=== PATIENT | female | born 1990 | race Caucasian/White ===

== ENCOUNTER 2021-12-25 13:32 | Emergency (ER) | payer MEDICARE, MEDICAID, SELFPAY ==
[2021-12-25 13:41] VITALS: BP 117/77; PULSE 83; RESP 18; TEMP 36.2; O2SAT 99; BMI 26.6
--- NOTE | 2021-12-25 14:04 | CRLHL7_ITS ---
For Patients: As a result of the Cures Act, medical imaging exams and procedure reports are released immediately into your electronic medical record. You may view this report before your referring provider. If you have questions, please contact your health care provider. Indication: Injury, pain Technique: Two views left tibia and fibula Comparison: 06/05/2018 Findings: Intact knee arthroplasty hardware. No acute fracture. Impression: No sign of acute injury. Dictated by Osbaldo Cline MD @ 12/25/2021 2:45:01 PM (Electronically Signed)
--- NOTE | 2021-12-25 14:55 | ED.GENADULT ---
HPI - General Adult General Chief complaint: Extremity Pain/Injury, Lower Stated complaint: Leg Injury Time Seen by Provider: 12/25/21 13:39 History of Present Illness HPI narrative: Angel is a 31-year-old female patient who presents emergency department via POV with complaints of left lower extremity pain. The patient reports that approximately 4 days prior she rolled out of bed and struck a pack and play that was sitting next to the bed with her left lower extremity. At the time, the patient reports significant pain associated with injury. She denies previous evaluation or treatment. She reports over the last few days she has attempted RICE and has used OTC pain medications without significant improvement in discomfort. She presents today at the urging of neighbors who recommended she be evaluated. She states that she is unable to ambulate on the lower extremity, but was noted by nursing staff to have walked into the facility and she reports that she drove herself here. She reports chronic bilateral lower extremity numbness and paresthesias secondary to history of brain cancer. She has known history of poor coordination secondary to this. In addition she has tardive dyskinesia, per her report secondary to her brain history. She denies other acute concerns or complaints as noted in ROS. Related Data Allergies Allergy/AdvReac Type Severity Reaction Status Date / Time levetiracetam [From Keppra] Allergy Verified 12/25/21 13:40 phenytoin [From Dilantin] Allergy Verified 12/25/21 13:40 Review of Systems Const: Denies: fever, chills, fatigue or malaise Eyes: Denies: change in vision or blurry vision ENMT: Denies: neck pain Cardio: Denies: chest pain, palpitations, swelling of feet/ankles, lightheadedness, shortness of breath with exertion, shortness of breath when lying down or leg pain with exertion Resp: Denies: shortness of breath or cough GI: Denies: abdominal pain, nausea, vomiting, diarrhea or constipation Musculo: Reports: extremity pain and muscle weakness (Chronic per patient); Denies: neck pain, joint pain or limited range of motion Integ/Breast: Reports: skin tenderness; Denies: rash or redness Neuro: Reports: numbness in extremities (Chronic per patient), weakness in extremities (Chronic per patient) and lack of coordination (Chronic per patient); Denies: headache, confusion or difficulty communicating thoughts Psych: Denies: anxiety or mood swings Endo: Denies: fatigue PFSH PFSH Social History Smoking Status: Current every day smoker Do you use any of these nicotine containing products: Vaping Products Second hand tobacco smoke exposure: No How often do you have a drink containing alcohol: monthly or less How many standard drinks containing alcohol do you have on a typical day: 1 or 2 How often do you have six or more drinks on one occasion: Never AUDIT-C Alcohol total score: 1 Non-prescribed substance use: denies use service: No Exam Const: Vital Signs, click to edit/add: Vital Signs - 24 hr 12/25/21 13:41 Temperature 97.1 F L Pulse Rate [Pulse Oximeter] 83 Respiratory Rate 18 Blood Pressure [Le ft Upper Arm] 117/77 Pulse Oximetry 99 Oxygen Delivery Me thod Room Air Documenting provider has reviewed patient's vital signs: yes Common normals: no apparent distress, average body habitus, oriented x3, no limitations, healthy appearing, alert and well nourished General appearance: cooperative, comfortable, well kempt and well developed; not in distress Orientation/consciousness: Yes awake, Yes oriented to person, Yes oriented to place and Yes oriented to time HENMT: Common normals: normocephalic and head/scalp atraumatic Head and scalp: normocephalic and atraumatic Eye: Common normals: PERRL Pupil: PERRL Neck & C-Spine: Common normals: full ROM, no lymphadenopathy and supple Resp: Common normals: normal respiratory effort, no use of accessory muscles and clear to auscultation bilaterally Effort & inspection: able to speak in complete sentences Auscultation: clear to auscultation bilaterally Cardio: Common normals: regular rate, regular rhythm, S1 normal heart sound and S2 normal heart sound Rate: regular rate Rhythm: regular rhythm Heart sounds: S1 normal and S2 normal Extremity: Common normals: normal to inspection, full ROM, no clubbing, cyanosis or edema and no calf tenderness Left lower extremity: lower leg Left lower leg: inspection (Normal, without erythema or ecchymosis or swelling noted), palpation (Negative pain to palpation; patient reports pain when she palpates.) and neurovascular exam (Abnormal secondary to chronic peripheral neuropathy per patient.) Neuro: Common normals: oriented x3, CN's II-XII intact bilaterally, moves all extremities (except as noted above), no focal motor deficits (except as noted above) and no sensory deficits noted (except as noted above) Sensorium/orientation: awake, alert, oriented to person, oriented to place and oriented to time Gait (neuro): normal gait (Unassisted) Motor exam: no movement abnormalities noted Psych: Common normals: mental status grossly normal, thought process normal, speech normal and activity/motor behavior normal Appearance: grossly normal and well kempt Attitude: calm Activity/motor behavior: appropriate eye contact Speech: normal speech Thought process: normal thought process Thought content: normal thought content Attention/concentration: attention grossly intact Memory/cognition: memory grossly intact Insight: insight good Judgement: judgment good Skin: Common normals: no rashes or lesions noted General skin exam: no rashes or lesions noted Course Course Hospital Course: Angel presented to the emergency department for complaints of left lower extremity pain after striking her leg on a pack and play. After a normal clinical exam, she was advised to consider conservative management. However, she requested imaging for further evaluation of potential fracture or dislocation. X-ray was performed. The negative images were discussed with the patient. She was reassured conservative management should assist with improving the contusion from striking her leg on the pack and play. She was encouraged she has [id number] medications as needed for pain and discomfort. She was advised to follow-up with her primary care as needed for continued pain or discomfort. Vital Signs Vital signs: Initial Vital Signs Temperature 97.1 F L 12/25/21 13:41 Temperature Source Temporal Artery Scan 12/25/21 13:41 Pulse Rate 83 12/25/21 13:41 Pulse Rhythm 12/25/21 13:41 Respiratory Rate 18 12/25/21 13:41 Blood Pressure 117/77 12/25/21 13:41 Blood Pressure Mean 90 12/25/21 13:41 Blood Pressure Position Sitting 12/25/21 13:41 Pulse Oximetry 99 12/25/21 13:41 Oxygen Delivery Method 12/25/21 13:41 Vital Signs Temperature 97.1 F L 12/25/21 13:41 Pulse Rate 83 12/25/21 13:41 Respiratory Rate 18 12/25/21 13:41 Blood Pressure 117/77 12/25/21 13:41 Pulse Oximetry 99 12/25/21 13:41 Oxygen Delivery Method 12/25/21 13:41 Temperature 97.1 F L 12/25/21 13:41 Pulse Rate 83 12/25/21 13:41 Respiratory Rate 18 12/25/21 13:41 Blood Pressure 117/77 12/25/21 13:41 Pulse Oximetry 99 12/25/21 13:41 Oxygen Delivery Method 12/25/21 13:41 Discharge Plan Discharge Clinical Impression: Contusion of left lower leg, initial encounter Patient Disposition: Home, Self-Care Condition: Stable Instructions: Contusion in Adults (ED) Additional Instructions: Thank you for choosing [facility] for your care today. Take NSAIDs (Ibuprofen, Motrin, Advil, or substitute) 600-800mg three times daily for the next three days. Decrease to twice daily for the next two days. Take NSAIDs once daily for 1wk. Use RICE - rest, ice, compression, and elevation - as needed for symptom control. I recommend following up with your primary physician in 1-2wks if a significant improvement of symptoms is not noted. Continue routine activity as tolerated. If new or worsening symptoms develop or you have any concerns in the meantime, please call your primary care clinic or return to the ER for re-evaluation. Activity Level: No Restrictions and Activity as Tolerated Discharge Diet: Regular Follow Up/Referrals: Provider,Not a Local [Referring] - Stand Alone Forms: [employer] Info Instructions
== END 2021-12-25 15:13 | disposition home or self-care (01) ==
PROVIDERS: Emergency Provider Family Medicine; PCP Physician Assistant
DX: S80.12XA Contusion of left lower leg, initial encounter (principal); W22.8XXA Striking against or struck by other objects, initial encounter
CPT/HCPCS: 73590; 99283

== ENCOUNTER 2023-01-17 13:39 | Outpatient (CLI) | payer MEDICARE, MEDICAID, SELFPAY ==
--- NOTE | 2023-01-17 14:00 | CRLHL7_ITS ---
For Patients: As a result of the Century Cures Act, medical imaging exams and procedure reports are released immediately into your electronic medical record. You may view this report before your referring provider. If you have questions, please contact your health care provider. INDICATION: Astrocytoma follow-up. TECHNIQUE: Brain MRI with contrast. The following sequences were obtained: Sagittal T1 weighted sequence. DWI and ADC mapping sequences. Axial FLAIR and GLADIS T2 weighted sequences. Susceptibility weighted or GRE sequence. T1 weighted post-contrast sequence(s). 15 cc of Dotarem gadolinium based contrast agent was used. COMPARISON: Brain MRI from 07/31/2022. FINDINGS: Postsurgical changes of right parietal craniotomy and subjacent high right parietal resection cavity. Mild FLAIR signal abnormality within the parietal lobe and posterior frontal lobe along the resection cavity margin, not significantly changed compared to prior exam. Mild linear enhancement within the central portion of the resection bed, likely reflecting scar. No pathologic enhancement along the resection cavity margins or elsewhere. No evidence of acute ischemia. No evidence of acute or chronic intracranial blood products. No hydrocephalus or extra-axial collections. The pituitary gland, parasellar structures and optic chiasm are normal. Posterior fossa is normal. All the major intracranial vascular structures demonstrate normal flow-related signal. The orbital contents are normal. No calvarial or skull base marrow signal abnormality. A right maxillary sinus retention cyst. No extracranial soft tissue findings. IMPRESSION: 1. Stable postoperative examination. No evidence of tumor progression. 2. Right parietal craniotomy and subjacent resection cavity with stable mild FLAIR signal abnormality along the resection cavity margin. No new concerning FLAIR signal abnormality or enhancement along the resection cavity margin or elsewhere within the brain. 3. No evidence of acute ischemia or other acute intracranial pathology Dictated by Ralph Stark MD @ 01/18/2023 1:02:34 PM (Electronically Signed)
== END 2023-01-17 13:40 | disposition home or self-care (01) ==
LOC: MRI 13:40
PROVIDERS: PCP Family Medicine; Visit Provider Family Medicine
DX: C71.9 Malignant neoplasm of brain, unspecified (principal)
CPT/HCPCS: 70553; A9575

== ENCOUNTER 2023-07-04 13:16 | Outpatient (CLI) | payer MEDICARE, MEDICAID, SELFPAY ==
--- NOTE | 2023-07-04 13:45 | MR_ITS ---
Patient: CONCEPCION CHRISTINE Facility:?[facility] Patient ID:?[id number] Site Patient ID:?[id number]. Site :?[id number] Study:?MRI-Head W/ and W/O Cont 14cc dotarem-07/04/2023 2:47:21 PM Ordering Physician:Judy Kenyon Final Report: Indication: Astrocytoma Technique: Noncontrast sagittal T1, axial FLAIR, T2 turbo spine echo, and diffusion weighted images. Supplemental post contrast T1 weighted axial and coronal sequences are provided after administration of 14 mL gadolinium-based IV contrast. Comparison: MRI 01/17/2023 Findings: Postoperative changes of right frontal-parietal craniotomy flap and resection cavity in the right superior parietal lobe. Stable FLAIR signal hyperintensity along the resection cavity margins extending into the right frontal and parietal subcortical and deep white matter. No new mass effect or FLAIR signal abnormalities. No suspicious extra-axial collection or acute intracranial hemorrhage. No evidence of diffusion restriction to suggest acute ischemia. No hydrocephalus. Expected intracranial vascular flow voids are preserved. Small focus of susceptible artifact in the right splenium of the corpus callosum and left parietal deep white matter likely due to remote microhemorrhages. No midline shift. There is no evidence of diffusion restriction to suggest acute ischemia. Calvarial bone marrow signal is within normal limits. The orbits are unremarkable. SP scalp and soft tissues are grossly normal. Air-fluid levels in the maxillary sinuses and moderate mucosal thickening in the maxillary sinuses and left sphenoid sinus raises the possibility of acute sinusitis. The mastoid air cells are clear. No pathologic enhancement. Impression: 1. Postoperative changes of right frontal-parietal craniotomy flap and resection cavity in the right superior parietal lobe. Stable FLAIR signal hyperintensity along the resection cavity margins extending into the right frontal and parietal subcortical and deep white matter. No suspicious nodular enhancement. No evidence of tumor progression. 2. No new mass effect or FLAIR signal abnormalities. 3. Moderate mucosal thickening in the maxillary and sphenoid sinuses with air- fluid levels in the maxillary sinuses. Findings are suggestive of acute sinusitis. Dictated by Osbaldo Chacon MD @ 07/04/2023 4:26:36 PM Signed by:?Osbaldo Chacon MD @07/04/2023 4:26:36 PM (Electronic Signature)
== END 2023-07-04 13:17 | disposition home or self-care (01) ==
LOC: MRI 13:17
PROVIDERS: PCP Family Medicine; Visit Provider Family Medicine
DX: C71.9 Malignant neoplasm of brain, unspecified (principal); J32.0 Chronic maxillary sinusitis; J32.3 Chronic sphenoidal sinusitis
CPT/HCPCS: 70553; A9575

== ENCOUNTER 2023-07-25 08:15 | Outpatient (CLI) | payer MEDICARE, MEDICAID, SELFPAY | END 2023-07-25 08:16 | disposition home or self-care (01) | LOC: AMB 07-28 13:38 | PROVIDERS: PCP Family Medicine; Visit Provider Family Medicine | DX: R10.9 Unspecified abdominal pain (principal) | CPT/HCPCS: A0425; A0427 ==

== ENCOUNTER 2023-07-25 08:53 | Emergency (ER) | payer MEDICARE, MEDICAID, SELFPAY ==
[2023-07-25] VITALS (39 sets, daily range): BP systolic 95–167; BP diastolic 53–124; PULSE 66–112; RESP 18–46; TEMP 34.7–36.5; O2SAT 96–100
--- NOTE | 2023-07-25 09:11 | ED_ITS ---
HPI - General Adult General Time Seen by Provider: 09:11 Date Seen: 07/25/23 Chief complaint: Neck Injury/Pain Stated complaint: neck injury Time Seen by Provider: 07/25/23 09:10 Source: patient, EMS, RN notes reviewed and old records reviewed Mode of arrival: EMS Limitations: altered mental status History of Present Illness HPI narrative: This 33-year-old female is brought in by EMS from home. It is thought possibly that the children called 911. EMS found her naked on the bathroom floor. She was not answering questions for EMS or nursing staff in triage. She just kept repeating I can not talk right now, please help me. She was intermittently stating to nursing staff my neck, I think and paralyzed. She was given 1 mg Ativan and 4 mg Zofran by EMS. Blood sugar was 228. 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 Neuropathic pain, partial seizures are noted. Bipolar disorder, migraines, history of cannabis dependence/ abuse resolved in 2013 reported in her chart. History of PTSD. For me patient is moving her legs, hanging on to the bar of the side rails tightly with the right hand, I do get her to hang onto my hand instead. When I go into the covers to get her left hand, she states she can not move her hand. She will roll over onto her back for me but then will state everything hurts, she is observed to move her head over to the right and lay with her head to the right. She states she can not open her eyes but at the end of it I do get her to open her eyes for me. She will talk a little bit and then states she can not talk anymore. She is hyperventilating. Her hair was wet, she reportedly was in the shower but I can not get further details from her. Related Data Previous Rx's Medication Instructions Recorded divalproex 500 mg tablet,delayed 500 mg PO BID #60 tabs 07/25/23 release (Depakote) naproxen sodium 550 mg tablet 550 mg PO BID #30 tabs 07/25/23 Allergies Allergy/AdvReac Type Severity Reaction Status Date / Time levetiracetam [From Keppra] Allergy Verified 12/25/21 13:40 phenytoin [From Dilantin] Allergy Verified 12/25/21 13:40 Review of Systems Status of ROS: Reports: unobtainable due to mental status [facility] Social History Smoking Status: Current every day smoker Do you use any of these nicotine containing products: Vaping Products Second hand tobacco smoke exposure: No How often do you have a drink containing alcohol: monthly or less How many standard drinks containing alcohol do you have on a typical day: 1 or 2 How often do you have six or more drinks on one occasion: Never AUDIT-C Alcohol total score: 1 Non-prescribed substance use: denies use service: No Exam Const: Vital Signs, click to edit/add: Vital Signs - 24 hr 07/25/23 09:03 07/25/23 09:06 07/25/23 09:07 Temperature 96.1 F L Pulse Rate 92 96 Pulse Rate [Pulse Oximeter] 92 Respiratory Rate 46 H Blood Pressure 140/124 H Blood Pressure [Le ft Upper Arm] 140/124 H Pulse Oximetry 100 100 100 Oxygen Delivery Me thod Room Air 07/25/23 09:15 07/25/23 09:17 07/25/23 09:18 Temperature Pulse Rate 100 103 H Pulse Rate [Pulse Oximeter] Respiratory Rate Blood Pressure 148/112 H Blood Pressure [Le ft Upper Arm] Pulse Oximetry 100 100 98 Oxygen Delivery Me thod 07/25/23 09:25 07/25/23 09:30 07/25/23 09:31 Temperature 94.5 F L Pulse Rate 85 77 Pulse Rate [Pulse Oximeter] Respiratory Rate Blood Pressure 167/118 H Blood Pressure [Le ft Upper Arm] Pulse Oximetry 100 99 Oxygen Delivery Me thod 07/25/23 09:38 07/25/23 09:45 07/25/23 09:46 Temperature Pulse Rate 66 66 90 Pulse Rate [Pulse Oximeter] Respiratory Rate Blood Pressure 98/71 115/73 Blood Pressure [Le ft Upper Arm] Pulse Oximetry 100 99 100 Oxygen Delivery Me thod 07/25/23 10:00 07/25/23 10:01 07/25/23 10:02 Temperature Pulse Rate 78 78 76 Pulse Rate [Pulse Oximeter] Respiratory Rate Blood Pressure 104/57 L Blood Pressure [Le ft Upper Arm] Pulse Oximetry 98 98 98 Oxygen Delivery Me thod 07/25/23 10:27 07/25/23 10:28 07/25/23 10:30 Temperature Pulse Rate 91 93 Pulse Rate [Pulse Oximeter] Respiratory Rate 20 Blood Pressure 119/72 Blood Pressure [Le ft Upper Arm] Pulse Oximetry 99 99 Oxygen Delivery Me thod 07/25/23 10:30 07/25/23 10:45 07/25/23 11:00 Temperature Pulse Rate 84 93 93 Pulse Rate [Pulse Oximeter] Respiratory Rate Blood Pressure Blood Pressure [Le ft Upper Arm] Pulse Oximetry 100 98 97 Oxygen Delivery Me thod 07/25/23 11:15 07/25/23 11:30 07/25/23 11:44 Temperature Pulse Rate 90 90 80 Pulse Rate [Pulse Oximeter] Respiratory Rate Blood Pressure 106/63 Blood Pressure [Le ft Upper Arm] Pulse Oximetry 97 97 98 Oxygen Delivery Me thod 07/25/23 11:45 07/25/23 12:00 07/25/23 12:01 Temperature Pulse Rate 72 82 85 Pulse Rate [Pulse Oximeter] Respiratory Rate Blood Pressure 101/55 L Blood Pressure [Le ft Upper Arm] Pulse Oximetry 97 97 97 Oxygen Delivery Me thod 07/25/23 12:15 07/25/23 12:30 07/25/23 12:45 Temperature Pulse Rate 112 H 88 97 Pulse Rate [Pulse Oximeter] Respiratory Rate Blood Pressure Blood Pressure [Le ft Upper Arm] Pulse Oximetry 97 96 96 Oxygen Delivery Me thod 07/25/23 12:50 07/25/23 13:00 07/25/23 13:01 Temperature 97.7 F Pulse Rate 85 88 Pulse Rate [Pulse Oximeter] Respiratory Rate 18 Blood Pressure 95/53 L Blood Pressure [Le ft Upper Arm] Pulse Oximetry 97 96 Oxygen Delivery Me thod 07/25/23 13:15 07/25/23 13:59 07/25/23 14:00 Temperature Pulse Rate 90 97 86 Pulse Rate [Pulse Oximeter] Respiratory Rate Blood Pressure Blood Pressure [Le ft Upper Arm] Pulse Oximetry 96 98 100 Oxygen Delivery Me thod 07/25/23 14:01 07/25/23 14:15 07/25/23 14:30 Temperature Pulse Rate 84 101 H 100 Pulse Rate [Pulse Oximeter] Respiratory Rate Blood Pressure 113/67 Blood Pressure [Le ft Upper Arm] Pulse Oximetry 99 96 97 Oxygen Delivery Me thod 07/25/23 14:45 Temperature Pulse Rate 96 Pulse Rate [Pulse Oximeter] Respiratory Rate Blood Pressure Blood Pressure [Le ft Upper Arm] Pulse Oximetry 99 Oxygen Delivery Me thod Patient is hyperventilating, do observe her moving independently on her own, she will follow some commands but then she will states for example that she can not move her left hand or arm but do observe her doing this independently when she is rolling over. She is alert and interactive, hyperventilating at times, definitely anxious. Pupils are small, about 2-3 mm but symmetric, conjugate gaze, sclera clear. She has damp air, no obvious head facial or neck visual traumatic changes. She has facial symmetry when talking, her jaw was a little tremulous at times with her anxiety and her hyperventilation. Does settle down when we get her to slow her breathing. Oropharynx normal mucosa, no traumatic changes in the oral cavity, no bite talbert noted. She has no midline tenderness of her neck or her spine, this was inspected see no traumatic change. Lungs are clear without wheezing or crackles. CV regular rate and rhythm no murmur. Abdomen is soft, no rebound or guarding. Her arms and legs without any acute traumatic change. Again not really following commands all the time but certainly do see her moving her arms and legs independently in using them. Documenting provider has reviewed patient's vital signs: yes Course Course ED Course: This patient is certainly could have trauma with underlying seizures, could have fell in the bathroom. There could be substance use here, could be m etabolic issues or infectious etiology. Need to consider recurrent brain tumor as well. We will start with CT of her head and neck. I am going to give her 2.5 mg IV Zyprexa, may need to repeat this dose. We need to settle her down a bit so that we can get meaningful imaging of her head neck. May need to consider other further imaging but will start with this, want to clear her head and neck as soon as possible. Will get a full complement of labs, will have nursing staff do triple swab. She does have an IV in place, will be monitored on cardiac monitoring and pulse oximetry. She has no immediate needs for airway support, will watch her closely. Reevaluation(s) Time of Reevaluation #1: 09:36 Reevaluation #1: Nursing staff reports that patient has some mental clearing after the 2.5 mg IV Zyprexa, is able to converse better. She complained that her right shoulder has been bothering her for couple weeks, she thinks it is dislocated. There has been no trauma. Will add on x-rays of her right shoulder. Note when I 1st evaluated this patient, she was lying on her right side exactly on this right shoulder. Axillary temperature was low at 90 for inpatient was complaining of being cold. Nursing staff did appropriately start rewarming with the [employer]aril[employer] Hugger. Time of Reevaluation #2: 09:42 Reevaluation #2: Potassium is reported to be 2.2. Will initiate IV and oral replacement. Have already ordered an EKG but do not have that yet. Time of Reevaluation #3: 13:55 Reevaluation #3: Reviewed with patient that we do believe she is post seizure. When we saw her she was likely postictal. She now knows that she was in the shower, started to feel cold and not right, was seeing bright lights, she sat down, this is likely when she progressed to have the seizure. She notes she has not slept the last couple nights because of right shoulder pain and she has a 2-year-old autistic child that is difficult. She states that she has to restrain him frequently. Reviewed with her that her x-ray looks to be normal, no evidence of any radiculopathy. She points to her shoulder area where the pain is. She has a most definite limitation of range of motion, when I get to an arc of abduction even about 80 or so degrees, it starts to bother her in her shoulder. She is so painful on range of motion that he really can not do full testing. This would seem that it is likely rotator cuff pathology. She follows at [facility] for her medical issues. She is not on any antiepileptic. She states she has an upcoming appointment, they are following an area of potential growth on her brain. Reviewed that the CT is stable here but this is not an MRI. Her follow- up potassium actually is normal at 3.5, lactate normal. Do wonder if there coul d have been contamination with IV fluids with that initial low potassium. She is normal now, not altered. I will talk to [facility] about her, will come up with a plan. Additional Reevaluation(s): 2:46 p.m.: Reviewed my conversation with the neurologist. She has a copper IUD in place. We will initiate Depakote. She is aware that she needs to keep the copper IUD in for contraceptive protection. She is worried about her children, states that they are on a hold, reviewed with her that I think she had a seizure and was postictal. We are initiating anti epileptics. We will let social media strategist know, she states we can talk to them. Did review marijuana positivity, she states social media strategist is aware. She would like to follow up with Orthopedics in [facility] for convenience. Will also place her on some scheduled naproxen. Consultations Consultation #1: Did call [facility], spoke with Allie MORTON. She will page out appropriate to Neurology for me, will call back. 2:31 p.m.: Spoke with neurologist Dr. Chavira from [facility]. Reviewed patient's case. If she is absolutely safe from standpoint, Depakote 500 mg twice a day can be initiated. If there is any chance for , the risk of [facility] cannot be accepted. Otherwise Vimpat could be initiated. She has an upcoming appointment on August 02, he feels this will be sufficient for follow-up. Time: 14:01 Vital Signs Vital signs: Initial Vital Signs Temperature 96.1 F L 07/25/23 09:03 Temperature Source Temporal Artery Scan 07/25/23 09:03 Pulse Rate 92 07/25/23 09:03 Respiratory Rate 46 H 07/25/23 09:03 Blood Pressure 140/124 H 07/25/23 09:03 Blood Pressure Mean 129 H 07/25/23 09:03 Blood Pressure Position Right Lateral 07/25/23 09:03 Pulse Oximetry 100 07/25/23 09:03 Oxygen Delivery Method Room Air 07/25/23 09:03 Vital Signs Temperature 96.1 F L 07/25/23 09:03 Pulse Rate 92 07/25/23 09:03 Respiratory Rate 46 H 07/25/23 09:03 Blood Pressure 140/124 H 07/25/23 09:03 Pulse Oximetry 100 07/25/23 09:03 Oxygen Delivery Method Room Air 07/25/23 09:03 Temperature 97.7 F 07/25/23 12:50 Pulse Rate 96 07/25/23 14:45 Respiratory Rate 18 07/25/23 12:50 Blood Pressure 113/67 07/25/23 14:01 Pulse Oximetry 99 07/25/23 14:45 Oxygen Delivery Method Room Air 07/25/23 09:03 Medications Administered Medications: Discontinued Medications Generic Name Dose Route Start Last Admin Trade Name Abhishekq PRN Reason Stop Dose Admin Divalproex Sodium 500 mg 07/25/23 14:43 07/25/23 15:07 Divalproex Sodium Er Tab 250 Mg PO 07/25/23 14:44 500 mg ONCE ONE Administration Potassium Chloride 10 meq in 100 mls @ 100 mls/hr 07/25/23 10:00 07/25/23 12:54 Potassium Chloride IVPB 07/25/23 12:29 Infused Q90M VALDEMAR Infusion Lactated Ringer's 1,000 mls @ 500 mls/hr 07/25/23 09:56 07/25/23 12:54 Lactated Ringers 1000 Ml IV 07/25/23 11:55 Infused .Q2H VALDEMAR Infusion Olanzapine 2.5 mg 07/25/23 09:18 07/25/23 09:22 Olanzapine 5 Mg/Ml Inj IVP 07/25/23 09:19 2.5 mg ONCE ONE Administration Potassium Bicarbonate 25 meq 07/25/23 10:00 07/25/23 11:45 Potassium Bicarb 25 Meq Effervescent Tab PO 07/25/23 10:01 Not Given ONCE ONE Medical Decision Making Medical Records Medical records reviewed: Yes I reviewed the patient's medical records Medical records narrative: Did review her MRI report from 07/04/2023. Lab Data Lab results reviewed: Yes I reviewed the patient's lab results Labs: Lab Results 07/25/23 07/25/23 07/25/23 Range/Units 09:00 09:19 09:48 WBC 12.05 H (4.50-11.00) K/uL RBC 4.41 (4.00-5.20) m/uL Hgb 13.2 (12.0-16.0) gm/dL Hct 40.2 (33.0-51.0) % MCV 91 (80-100) fL MCH 30 (26-34) pg MCHC 33 (32-36) gm/dL RDW Coeff of Mahesh 12.3 (11.5-15.5) % Plt Count 399 (140-440) K/uL Neut % (Auto) 59.5 (42.0-72.0) % Lymph % (Auto) 34.4 (20-44) % [place] % (Auto) 3.2 (0.0-11.0) % Eos % (Auto) 2.0 (0.0-7.0) % Baso % (Auto) 0.7 (0.0-3.0) % Neut # (Auto) 7.20 H (1.7-7.0) K/uL Lymph # (Auto) 4.10 H (0.90-2.90) K/uL [place] # (Auto) 0.40 (0.00-0.90) K/UL Eos # (Auto) 0.20 (0.00-0.50) K/uL Baso # (Auto) 0.10 (0.00-0.30) K/uL Abs Immat Gran (auto) 0.00 (0.00-0.30) K/uL Imm/Tot Granulo (auto) 0.2 % Sodium 141 (135-149) mmol/L Potassium 2.2 L* (3.6-5.1) mmol/L Chloride 106 (96-114) mmol/L Carbon Dioxide 15 L (20-32) mmol/L Anion Gap 20 H (7-15) mEq/L BUN 8 (5-24) mg/dL Creatinine 0.8 (0.5-1.5) mg/dL Estimated GFR 99 ml/min Glucose 177 H (60-115) mg/dL Lactate 9.0 H* (0.5-1.9) mmol/L Calcium 9.4 (8.4-10.6) mg/dL Magnesium 1.9 (1.5-2.6) mg/dL Total Bilirubin 0.5 (0.1-1.5) mg/dL AST 31 (12-35) U/L ALT 31 (4-35) U/L Alkaline Phosphatase 88 (40-150) U/L Total Protein 7.6 (6.0-8.3) g/dL Albumin 4.8 (3.3-5.0) g/dL HCG, Qual (Negative) Urine Color (Yellow) Urine Appearance (Clear) Urine pH (5.0-8.5) Ur Specific [place] (1.000-1.030) Urine Protein (Negative) Urine Glucose (UA) (Negative) Urine Ketones (Negative) Urine Blood (Negative) Urine Nitrite (Negative) Urine Bilirubin (Negative) Urine Urobilinogen (0.2-1.0) Ur Leukocyte Esterase (Negative) Urine RBC (0-2) Urine WBC (0-5) Ur Squamous Epith Cells (None-Few) Amorphous Sediment (None) Other Sediment (None) Urine Bacteria (None) Urine Opiates Screen (Negative) Ur Oxycodone Screen (Negative) Urine Methadone Screen (Negative) Ur Barbiturates Screen (Negative) U Tricyclic Antidepress (Negative) Ur Phencyclidine Scrn (Negative) Ur Amphetamines Screen (Negative) U Methamphetamines Scrn (Negative) U Benzodiazepines Scrn (Negative) Urine Cocaine Screen (Negative) U Marijuana (THC) Screen (Negative) Ur Drug Screen Comment Ethyl Alcohol < 0.01 L (0.01-0.03) % SARS-CoV-2 (PCR) Negative SARS-CoV-2 (Negative) Influenza Type A (PCR) Negative PCR FLU A (Negative) Influenza Type B (PCR) Negative PCR FLU B (Negative) RSV (PCR) Negative PCR RSV (Negative) Lab Acknowledgement Test Added 07/25/23 07/25/23 07/25/23 Range/Units 12:45 13:30 14:39 WBC (4.50-11.00) K/uL RBC (4.00-5.20) m/uL Hgb (12.0-16.0) gm/dL Hct (33.0-51.0) % MCV (80-100) fL MCH (26-34) pg MCHC (32-36) gm/dL RDW Coeff of Mahesh (11.5-15.5) % Plt Count (140-440) K/uL Neut % (Auto) (42.0-72.0) % Lymph % (Auto) (20-44) % [place] % (Auto) (0.0-11.0) % Eos % (Auto) (0.0-7.0) % Baso % (Auto) (0.0-3.0) % Neut # (Auto) (1.7-7.0) K/uL Lymph # (Auto) (0.90-2.90) K/uL [place] # (Auto) (0.00-0.90) K/UL Eos # (Auto) (0.00-0.50) K/uL Baso # (Auto) (0.00-0.30) K/uL Abs Immat Gran (auto) (0.00-0.30) K/uL Imm/Tot Granulo (auto) % Sodium (135-149) mmol/L Potassium 3.5 L (3.6-5.1) mmol/L Chloride (96-114) mmol/L Carbon Dioxide (20-32) mmol/L Anion Gap (7-15) mEq/L BUN (5-24) mg/dL Creatinine (0.5-1.5) mg/dL Estimated GFR ml/min Glucose (60-115) mg/dL Lactate 1.3 (0.5-1.9) mmol/L Calcium (8.4-10.6) mg/dL Magnesium (1.5-2.6) mg/dL Total Bilirubin (0.1-1.5) mg/dL AST (12-35) U/L ALT (4-35) U/L Alkaline Phosphatase (40-150) U/L Total Protein (6.0-8.3) g/dL Albumin (3.3-5.0) g/dL HCG, Qual Negative (Negative) Urine Color Dark yellow (Yellow) Urine Appearance Clear (Clear) Urine pH 7.0 (5.0-8.5) Ur Specific [place] 1.025 (1.000-1.030) Urine Protein Trace A (Negative) Urine Glucose (UA) Negative (Negative) Urine Ketones Trace A (Negative) Urine Blood Negative (Negative) Urine Nitrite Negative (Negative) Urine Bilirubin Negative (Negative) Urine Urobilinogen 0.2 (0.2-1.0) Ur Leukocyte Esterase Negative (Negative) Urine RBC 0-2 (0-2) Urine WBC 2-5 (0-5) Ur Squamous Epith Cells Few (None-Few) Amorphous Sediment Few A (None) Other Sediment Few A (None) Urine Bacteria Few A (None) Urine Opiates Screen Negative (Negative) Ur Oxycodone Screen Negative (Negative) Urine Methadone Screen Negative (Negative) Ur Barbiturates Screen Negative (Negative) U Tricyclic Antidepress Negative (Negative) Ur Phencyclidine Scrn Negative (Negative) Ur Amphetamines Screen Negative (Negative) U Methamphetamines Scrn Negative (Negative) U Benzodiazepines Scrn POSITIVE A (Negative) Urine Cocaine Screen Negative (Negative) U Marijuana (THC) Screen POSITIVE A (Negative) Ur Drug Screen Comment See Note Ethyl Alcohol (0.01-0.03) % SARS-CoV-2 (PCR) (Negative) Influenza Type A (PCR) (Negative) Influenza Type B (PCR) (Negative) RSV (PCR) (Negative) Lab Acknowledgement Test Added Imaging Data CT scan - head: Attestation: I have reviewed the pertinent imaging results. Radiologist's impression: Patient: CONCEPCION CHRISTINE Facility:?[facility] Patient ID:?[id number] Site Patient ID:?[id number]. Site :?1990 Study:?CT Head WITHOUT-07/25/2023 10:38:45 AM Ordering Physician:?DR. GILMORE Final Report: INDICATION: FALL. AMS. HX OF BRAIN TUMOR TECHNIQUE: CT head without contrast. COMPARISON: MRI brain July 04, 2023. FINDINGS: Postoperative changes of right frontal-parietal craniotomy flap and resection cavity in the right superior parietal lobe. The larson-white differentiation is otherwise normal no sign of mass effect, hemor rhage, or midline shift. No extra-axial fluid collection. Mucosal retention cysts within the bilateral maxillary sinuses. Frothy secretions within the left sphenoid sinus. The visualized orbits are grossly unremarkable. No skull fractures. IMPRESSION: 1. Postoperative changes of right frontal-parietal craniotomy flap and resection cavity in the right superior parietal lobe. 2. Otherwise, no evidence of acute intracranial abnormality on unenhanced CT. 3. Mild frothy secretions within left sphenoid sinus. Recommend correlation for signs and symptoms of sinusitis. Please note that all CT scans at this facility use dose modulation, iterative reconstruction, and/or weight-based dosing when appropriate to reduce radiation dose to as low as reasonably achievable. Dictated by Chris Hudson MD @ 07/25/2023 10:47:18 AM (Electronic Signature) CT cervical spine: Attestation: I have reviewed the pertinent imaging results. Radiologist's impression: Patient: CONCEPCION Gann [facility] Facility:?[facility] Patient ID:?[id number] Site Patient ID:?[id number]. Site :?1990 Study:?CT Spine Cervical WITHOUT-07/25/2023 10:39:29 AM Ordering Physician:?DR. GILMORE Final Report: INDICATION: FALL. AMS. HX OF BRAIN TUMOR, NECK PAIN TECHNIQUE: CT cervical spine without contrast. COMPARISON: None. FINDINGS: Vertebrae: Straightening of expected cervical lordosis. There are no fractures or suspicious bony lesions. Discs and facet joints: Mild intervertebral disc space narrowing at C6-C7. Minimal multilevel facet arthropathy. Extraspinal findings: Paraspinous soft tissues are unremarkable. IMPRESSION: 1. No evidence of acute cervical spine fracture. Please note that all CT scans at this facility use dose modulation, iterative reconstruction, and/or weight-based dosing when appropriate to reduce radiation dose to as low as reasonably achievable. Dictated by Chris Hudson MD @ 07/25/2023 10:52:57 AM (Electronic Signature) XR right shoulder: Attestation: I have reviewed the pertinent imaging results. My impression: I did visualize her shoulder films, no active pathology a my preliminary review. Radiologist's impression: Patient: CONCEPCION CHRISTINE Facility:?[facility] Patient ID:?[id number] Site Patient ID:?[id number]. Site :?1990 Study:?XRay Shoulder Right 3 view-07/25/2023 10:32:01 AM Ordering Physician:?Flores Morales Final Report: Indication: Pain Technique: Three views of the right shoulder Comparison: None Findings/impression : No acute fracture or malalignment. No osteoarthritic degenerative changes. No suspicious osseous lesions. The soft tissues are unremarkable. The visualized lungs are clear. Dictated by Ramírez Ndiaye MD @ 07/25/2023 10:35:12 AM (Electronic Signature) ECG Data Attestation: I personally reviewed and interpreted this ECG as follows: (Normal sinus rhythm, 60 beats per minute. No significant T-wave abnormality, no ischemic change. QT corrected 457 milliseconds.) Prior ECG tracings: not available for review Discharge Plan Discharge Clinical Impression: Post-ictal confusion, Acute pain of right shoulder, Seizure disorder Patient Disposition: Home, Self-Care Condition: Stable Instructions: Rotator Cuff Injury (ED), Recurrent Seizures in Adults (ED) Additional Instructions: Need to follow-up with orthopedics for your shoulder, believe this to be rotator cuff pathology. Avoidance of your arm overhead or behind you, not lying on this side will help to not aggravate pain. Can use ice to the shoulder area. You can call the Orthopedic Clinic in [facility] at [phone] to get scheduled for your shoulder. We will put you on some naproxen as an anti-inflammatory for your shoulder, can add in Tylenol 1000 mg 3 times a day. For prevention of seizures, we will initiate Depakote 500 mg twice a day, stay on this until further advised by your neurologist at [facility]. You may need to get medication refills from them. You are not supposed to drive given that you have had a recurrent seizure, Neurology can further advise you on this at your follow-up. Activity Level: Activity as Tolerated Prescriptions: New divalproex [Depakote] 500 mg tablet,delayed release (DR/EC) 500 mg PO BID Qty: 60 0RF naproxen sodium 550 mg tablet 550 mg PO BID Qty: 30 0RF Follow Up/Referrals: Negar Kenyon DO [Primary Care Provider] - Stand Alone Forms: [email or web address] Info Instructions
--- NOTE | 2023-07-25 09:19 | CT_ITS ---
Patient: CONCEPCION CHRISTINE Facility:?[facility] Patient ID:?[id number] Site Patient ID:?[id number]. Site :?1990 Study:?CT-Spine Cervical WITHOUT-07/25/2023 10:39:29 AM Ordering Physician:?DR. GILMORE Final Report: INDICATION: FALL. AMS. HX OF BRAIN TUMOR, NECK PAIN TECHNIQUE: CT cervical spine without contrast. COMPARISON: None. FINDINGS: Vertebrae: Straightening of expected cervical lordosis. There are no fractures or suspicious bony lesions. Discs and facet joints: Mild intervertebral disc space narrowing at C6-C7. Minimal multilevel facet arthropathy. Extraspinal findings: Paraspinous soft tissues are unremarkable. IMPRESSION: 1. No evidence of acute cervical spine fracture. Please note that all CT scans at this facility use dose modulation, iterative reconstruction, and/or weight-based dosing when appropriate to reduce radiation dose to as low as reasonably achievable. Dictated by Chris Hudson MD @ 07/25/2023 10:52:57 AM Signed by:?Chris Hudson MD @07/25/2023 10:52:57 AM (Electronic Signature)
--- NOTE | 2023-07-25 09:19 | CT_ITS ---
Patient: CONCEPCION CHRISTINE Facility:?[facility] R[facility] Patient ID:?[id number] Site Patient ID:?[id number]. Site :?1990 Study:?CT-Head WITHOUT-07/25/2023 10:38:45 AM Ordering Physician:?DR. GILMORE Final Report: INDICATION: FALL. AMS. HX OF BRAIN TUMOR TECHNIQUE: CT head without contrast. COMPARISON: MRI brain July 04, 2023. FINDINGS: Postoperative changes of right frontal-parietal craniotomy flap and resection cavity in the right superior parietal lobe. The larson-white differentiation is otherwise normal no sign of mass effect, hemorrhage, or midline shift. No extra-axial fluid collection. Mucosal retention cysts within the bilateral maxillary sinuses. Frothy secretions within the left sphenoid sinus. The visualized orbits are grossly unremarkable. No skull fractures. IMPRESSION: 1. Postoperative changes of right frontal-parietal craniotomy flap and resection cavity in the right superior parietal lobe. 2. Otherwise, no evidence of acute intracranial abnormality on unenhanced CT. 3. Mild frothy secretions within left sphenoid sinus. Recommend correlation for signs and symptoms of sinusitis. Please note that all CT scans at this facility use dose modulation, iterative reconstruction, and/or weight-based dosing when appropriate to reduce radiation dose to as low as reasonably achievable. Dictated by Chris Hudson MD @ 07/25/2023 10:47:18 AM Signed by:?Chris Hudson MD @07/25/2023 10:47:18 AM (Electronic Signature)
[2023-07-25 09:21] LABS: Basophils Percent Auto 0.7 % (0.0-3.0); Hematocrit 40.2 % (33.0-51.0); Hemoglobin* 13.2 gm/dL (12.0-16.0); Immature Granulocytes Pct Auto 0.2 %; Lymphocytes Percent Auto 34.4 % (20-44); Mean Corpuscular HGB Conc 33 gm/dL (32-36); Mean Corpuscular Hemoglobin 30 pg (26-34); Mean Corpuscular Volume 91 fL (80-100); Monocytes Percent Auto 3.2 % (0.0-11.0); Neutrophils Percent Auto 59.5 % (42.0-72.0); Platelet Count* 399 K/uL (140-440); RDW Coefficient of Variation % 12.3 % (11.5-15.5); Red Blood Count 4.41 m/uL (4.00-5.20); White Blood Count* 12.05 K/uL (4.50-11.00)
[2023-07-25 09:22] LABS: Slide Review Reflex No
[2023-07-25] MEDS: OLANZapine 5 MG/ML inj 2.5 MG IVP (09:22)
[2023-07-25 09:32] LABS: Albumin* 4.8 g/dL (3.3-5.0); Chloride* 106 mmol/L (96-114)
[2023-07-25 09:33] LABS: Sodium* 141 mmol/L (135-149)
[2023-07-25 09:35] LABS: Anion Gap 20 mEq/L (7-15); Aspartate Amino Transferase* 31 U/L (12-35); Bilirubin Total* 0.5 mg/dL (0.1-1.5); Carbon Dioxide* 15 mmol/L (20-32); Creatinine* 0.8 mg/dL (0.5-1.5); Estimated Glomerular Filt Rate 99 ml/min; Ethanol* < 0.01 % (0.01-0.03); Total Protein* 7.6 g/dL (6.0-8.3)
--- NOTE | 2023-07-25 09:35 | XR_ITS ---
Patient: CONCEPCION CHRISTINE Facility:?[facility] Patient ID:?[id number] Site Patient ID:?[id number]. Site :?1990 Study:?XRay-Shoulder Right 3 view-07/25/2023 10:32:01 AM Ordering Physician:?Flores Morales Final Report: Indication: Pain Technique: Three views of the right shoulder Comparison: None Findings/impression : No acute fracture or malalignment. No osteoarthritic degenerative changes. No suspicious osseous lesions. The soft tissues are unremarkable. The visualized lungs are clear. Dictated by Ramírez Ndiaye MD @ 07/25/2023 10:35:12 AM Signed by:?Ramírez Ndiaye MD @07/25/2023 10:35:12 AM (Electronic Signature)
[2023-07-25 09:36] LABS: Alkaline Phosphatase* 88 U/L (40-150); Blood Urea Nitrogen* 8 mg/dL (5-24); Calcium* 9.4 mg/dL (8.4-10.6); Glucose* 177 mg/dL (60-115)
[2023-07-25 09:38] LABS: Potassium* 2.2 mmol/L (3.6-5.1)
[2023-07-25 10:12] LABS: PCR FLU A Negative PCR FLU A (Negative); PCR FLU B Negative PCR FLU B (Negative); PCR RSV Negative PCR RSV (Negative); SARS PCR* Negative SARS-CoV-2 (Negative)
[2023-07-25 10:14] LABS: Alanine Aminotransferase* 31 U/L (4-35)
[2023-07-25 10:28] LABS: Magnesium* 1.9 mg/dL (1.5-2.6)
[2023-07-25] MEDS: LACTATED RINGERS 1000 ML 1,000 ML 500 ML IV (10:33)
[2023-07-25] MEDS: POTASSIUM CHLORIDE 10 MEQ/100 ML PIGGYBACK 100 MEQ IVPB ×2 (10:33→11:45)
[2023-07-25 12:56] LABS: Lactate* 1.3 mmol/L (0.5-1.9)
[2023-07-25 13:16] LABS: Potassium* 3.5 mmol/L (3.6-5.1)
[2023-07-25 13:40] LABS: Appearance Urine Clear (Clear); Bilirubin Urine Negative (Negative); Blood Urine Negative (Negative); Color Urine Dark yellow (Yellow); Glucose Urine Negative (Negative); Ketones Urine Trace (Negative); Leukocyte Esterase Urine Negative (Negative); Nitrite Urine Negative (Negative); Protein Urine Trace (Negative); Specific Gravity Urine 1.025 (1.000-1.030); Urobilinogen Urine 0.2 (0.2-1.0)
[2023-07-25 13:49] LABS: Amphetamine Screen Urine Negative (Negative); Barbiturate Screen Urine Negative (Negative); Benzodiazepines Screen Urine POSITIVE (Negative); Cannabinoid Screen Urine POSITIVE (Negative); Cocaine Screen Urine Negative (Negative); Methadone Screen Urine Negative (Negative); Methamphetamines Screen Urine Negative (Negative); Opiate Screen Urine Negative (Negative); Oxycodone Screen Urine Negative (Negative); Phencyclidine Screen Urine Negative (Negative); Tricyclic Antidepressant Urine Negative (Negative)
[2023-07-25 13:51] LABS: Amorphous Sediment Urine Few; Bacteria Urine Few; RBC Urine 0-2 (0-2); Squamous Epithelial Cell Urine Few (None-Few)
[2023-07-25 13:53] LABS: Other Sediment Urine Few
[2023-07-25 14:44] LABS: HCG Qualitative Serum* Negative (Negative)
[2023-07-25] MEDS: DIVALPROEX SODIUM ER TAB 250 MG 500 MG PO (15:07)
== END 2023-07-25 15:24 | disposition home or self-care (01) ==
PROVIDERS: Emergency Provider Family Medicine; PCP Family Medicine
DX: G40.409 Other generalized epilepsy and epileptic syndromes, not intractable, without status epilepticus (principal)
CPT/HCPCS: 36415; 70450; 72125; 73030; 80053; 80306; 81001; 82077; 83605; 83735; 84132; 84703; 85025; 87086; 87631; 93005; 94761; 99285; A9270; J3480; J7120